=== PATIENT | male | born 1985 | race African-American/Black ===

== ENCOUNTER 2017-07-24 19:09 | Emergency (ER) | payer MEDICAID ==
[2017-07-24 19:56] LABS: BASOPHILS 0 % (0-2); EOSINOPHILS 0 % (0-7); HEMATOCRIT 39.4 % (42.0-54.0); HEMOGLOBIN 13.9 g/dL (13.5-17.5); IMMATURE GRANULOCYTES 0.3 % (0-5); LYMPHOCYTES 23.5 % (15-50); MCH 31.8 pg (26.0-34.0); MCHC 35.3 g/dL (31.0-37.0); MCV 90.2 fL (80.0-100.0); MEAN PLATELET VOLUME 9.9 fL (7.4-10.4); MONOCYTES 9.4 % (2-11); NEUTROPHILS 66.8 % (40-80); RBC 4.37 10x6/uL (4.20-6.10); RDW 13.9 % (11.5-14.5)
[2017-07-24 20:13] LABS: PLATELET COUNT 204 10x3/uL (130-400)
[2017-07-24 20:32] LABS: ALBUMIN 3.9 g/dL (3.4-5.0); ANION GAP 11.6 mmol/L (8-16); BILIRUBIN - TOTAL 0.76 mg/dL (0.2-1.3); CALCIUM 8.9 mg/dL (8.5-10.1); CARBON DIOXIDE 27.3 mmol/L (21.0-32.0); CREATININE - SERUM 1.3 mg/dL (0.6-1.3); POTASSIUM - SERUM 3.9 mmol/L (3.5-5.1); PROTEIN - SERUM 7.2 g/dL (6.4-8.2)
[2017-07-24 22:02] LABS: APPEARANCE CLEAR (CLEAR); BILIRUBIN NEGATIVE (NEGATIVE); COLOR YELLOW (YELLOW); GLUCOSE NEGATIVE (NEGATIVE); KETONE NEGATIVE (NEGATIVE); LEUKOCYTE ESTERASE NEGATIVE (NEGATIVE); NITRITE NEGATIVE (NEGATIVE); PROTEIN NEGATIVE (NEGATIVE); UROBILINOGEN NORMAL (NORMAL)
[2017-07-24 22:27] LABS: UDS - AMPHET NEGATIVE QUAL (NEGATIVE); UDS - BARB NEGATIVE QUAL (NEGATIVE); UDS - BENZO NEGATIVE QUAL (NEGATIVE); UDS - COCAINE NEGATIVE QUAL (NEGATIVE); UDS - METH NEGATIVE QUAL (NEGATIVE); UDS - OPIATE NEGATIVE QUAL (NEGATIVE); UDS - PCP NEGATIVE QUAL (NEGATIVE); UDS - THC NEGATIVE QUAL (NEGATIVE)
== END 2017-07-24 23:31 | disposition home or self-care (01) ==
LOC: D.ER 19:09
PROVIDERS: Physician Assistant Medical
DX: R56.9 Unspecified convulsions (principal); F17.200 Nicotine dependence, unspecified, uncomplicated

== ENCOUNTER 2017-11-27 01:07 | Emergency (ER) | payer MEDICAID ==
[2017-11-27 02:17] LABS: BASOPHILS 0.1 % (0-2); EOSINOPHILS 0 % (0-7); HEMATOCRIT 40.3 % (42.0-54.0); IMMATURE GRANULOCYTES 0.1 % (0-5); LYMPHOCYTES 29.7 % (15-50); MCH 31.7 pg (26.0-34.0); MCHC 34.7 g/dL (31.0-37.0); MCV 91.4 fL (80.0-100.0); MEAN PLATELET VOLUME 9.6 fL (7.4-10.4); MONOCYTES 10.7 % (2-11); NEUTROPHILS 59.4 % (40-80); PLATELET COUNT 222 10x3/uL (130-400); RBC 4.41 10x6/uL (4.20-6.10); RDW 14.3 % (11.5-14.5)
[2017-11-27 02:23] LABS: ALBUMIN 3.7 g/dL (3.4-5.0); ALKALINE PHOSPHATASE 66 U/L (46-116); ALT (SGPT) 30 U/L (10-68); BILIRUBIN - TOTAL 0.34 mg/dL (0.2-1.3); CALC OSMOLALITY 279 mosm/kg (275-300); CALCIUM 8.4 mg/dL (8.5-10.1); CARBON DIOXIDE 25.8 mmol/L (21.0-32.0); CHLORIDE - SERUM 104 mmol/L (98-107); CREATININE - SERUM 1.2 mg/dL (0.6-1.3); GLUCOSE 110 mg/dL (74-106); MAGNESIUM - SERUM 1.9 mg/dL (1.8-2.4); POTASSIUM - SERUM 4.1 mmol/L (3.5-5.1); PROTEIN - SERUM 6.6 g/dL (6.4-8.2); SODIUM 139 mmol/L (136-145); UREA NITROGEN 14 mg/dL (7-18); eGFR NON AFRICAN AMERICAN 75 mL/min (90-120)
[2017-11-27 02:39] LABS: APPEARANCE CLEAR (CLEAR); BILIRUBIN NEGATIVE (NEGATIVE); COLOR YELLOW (YELLOW); GLUCOSE NEGATIVE (NEGATIVE); KETONE NEGATIVE (NEGATIVE); NITRITE NEGATIVE (NEGATIVE); PROTEIN NEGATIVE (NEGATIVE); SPECIFIC GRAVITY 1.015 (1.005-1.020); UROBILINOGEN NORMAL (NORMAL)
[2017-11-27 02:46] LABS: UDS - AMPHET NEGATIVE QUAL (NEGATIVE); UDS - BARB NEGATIVE QUAL (NEGATIVE); UDS - BENZO NEGATIVE QUAL (NEGATIVE); UDS - COCAINE NEGATIVE QUAL (NEGATIVE); UDS - OPIATE NEGATIVE QUAL (NEGATIVE); UDS - PCP NEGATIVE QUAL (NEGATIVE); UDS - THC NEGATIVE QUAL (NEGATIVE)
== END 2017-11-27 03:53 | disposition home or self-care (01) ==
LOC: D.ER 01:07
PROVIDERS: Nurse Practitioner Family
DX: G40.909 Epilepsy, unspecified, not intractable, without status epilepticus (principal)

== ENCOUNTER 2018-02-18 00:52 | Emergency (ER) | payer MEDICARE ==
[2018-02-18 01:15] LABS: BASOPHILS 0.1 % (0-2); EOSINOPHILS 0.1 % (0-7); HEMATOCRIT 39.2 % (42.0-54.0); HEMOGLOBIN 13.7 g/dL (13.5-17.5); IMMATURE GRANULOCYTES 0.1 % (0-5); LYMPHOCYTES 26.2 % (15-50); MCH 31.5 pg (26.0-34.0); MCHC 34.9 g/dL (31.0-37.0); MCV 90.1 fL (80.0-100.0); MONOCYTES 8.1 % (2-11); NEUTROPHILS 65.4 % (40-80); PLATELET COUNT 181 10x3/uL (130-400); RBC 4.35 10x6/uL (4.20-6.10); RDW 13.9 % (11.5-14.5); WBC 7.8 10x3/uL (4.8-10.8)
[2018-02-18 01:28] LABS: ALBUMIN 3.7 g/dL (3.4-5.0); ALKALINE PHOSPHATASE 60 U/L (46-116); ALT (SGPT) 26 U/L (10-68); CALC OSMOLALITY 277 mosm/kg (275-300); CALCIUM 8.4 mg/dL (8.5-10.1); CARBON DIOXIDE 28.2 mmol/L (21.0-32.0); CHLORIDE - SERUM 105 mmol/L (98-107); CREATININE - SERUM 1.2 mg/dL (0.6-1.3); GLUCOSE 94 mg/dL (74-106); MAGNESIUM - SERUM 1.6 mg/dL (1.8-2.4); POTASSIUM - SERUM 4.1 mmol/L (3.5-5.1); PROTEIN - SERUM 6.9 g/dL (6.4-8.2); SODIUM 139 mmol/L (136-145); UREA NITROGEN 12 mg/dL (7-18); eGFR NON AFRICAN AMERICAN 75 mL/min (90-120)
[2018-02-18 01:57] LABS: APPEARANCE CLEAR (CLEAR); BILIRUBIN NEGATIVE (NEGATIVE); COLOR YELLOW (YELLOW); GLUCOSE NEGATIVE (NEGATIVE); KETONE NEGATIVE (NEGATIVE); NITRITE NEGATIVE (NEGATIVE); PROTEIN NEGATIVE (NEGATIVE); SPECIFIC GRAVITY 1.015 (1.005-1.020); UROBILINOGEN NORMAL (NORMAL)
[2018-02-18 02:07] LABS: UDS - AMPHET NEGATIVE QUAL (NEGATIVE); UDS - BARB NEGATIVE QUAL (NEGATIVE); UDS - BENZO NEGATIVE QUAL (NEGATIVE); UDS - COCAINE NEGATIVE QUAL (NEGATIVE); UDS - OPIATE NEGATIVE QUAL (NEGATIVE); UDS - PCP NEGATIVE QUAL (NEGATIVE); UDS - THC NEGATIVE QUAL (NEGATIVE)
== END 2018-02-18 02:26 | disposition home or self-care (01) ==
LOC: D.ER 00:52
PROVIDERS: Emergency Medicine
DX: R56.1 Post traumatic seizures (principal); Z91.14 Patient's other noncompliance with medication regimen; F17.200 Nicotine dependence, unspecified, uncomplicated

== ENCOUNTER 2019-02-15 19:56 | Emergency (ER) | payer MEDICARE ==
[~2019-02-15] VITALS: Ht 172.7 cm; Wt 63.5 kg
[2019-02-15 19:58] VITALS: Ht 172.7 cm; Wt 63.5 kg
[2019-02-15] MEDS ORDERED: VOLTAREN75 MG PO (21:41)
[2019-02-15] MEDS ORDERED: BACLOFEN20 M1 PO (21:41)
[2019-02-15 22:59] VITALS: BP 134/81
== END 2019-02-15 21:50 | disposition home or self-care (01) ==
LOC: D.ER 19:56
DX: R07.9 Chest pain, unspecified (principal); M54.2 Cervicalgia; V89.2XXA Person injured in unspecified motor-vehicle accident, traffic, initial encounter

== ENCOUNTER 2020-01-10 21:36 | Emergency (ER) | payer MEDICARE ==
[~2020-01-10] VITALS: Ht 172.7 cm; Wt 67.7 kg
[~2020-01-10 21:36] MED LIST: BACLOFEN20 M1 PO; VOLTAREN75 MG PO
[2020-01-10 21:51] VITALS: Ht 172.7 cm; Wt 67.7 kg
[2020-01-10 23:31] VITALS: BP 114/62
== END 2020-01-10 23:31 | disposition home or self-care (01) ==
LOC: D.ER 21:36
DX: S01.112A Laceration without foreign body of left eyelid and periocular area, initial encounter (principal); Z86.73 Personal history of transient ischemic attack (TIA), and cerebral infarction without residual deficits; W22.8XXA Striking against or struck by other objects, initial encounter; Y93.9 Activity, unspecified; Y92.9 Unspecified place or not applicable